=== PATIENT | female | born 1940 | race Caucasian/White ===

== ENCOUNTER → 2016-12-10 | Outpatient (CLI) | payer MEDICARE, BC ==
[2016-12-10 08:19] LABS: ALT 74 U/L (9-52); AST 68 U/L (14-36); Alkaline Phosphatase 58 U/L (38-126); Anion Gap 9 mmol/L; Blood Urea Nitrogen 13 mg/dL (7-17); Calcium 9.1 mg/dL (8.4-10.2); Carbon Dioxide 26 mmol/L (22-30); Chloride 109 mmol/L (98-107); Cholesterol 151 mg/dL (<200); Glucose 101 mg/dL (74-99); HDL Cholesterol 40 mg/dL (40-60); Non-African American GFR(MDRD) 58 (>60 ml/min/1.73 sqM); Potassium 4.4 mmol/L (3.5-5.1); Sodium 144 mmol/L (137-145); Total Bilirubin 0.4 mg/dL (0.2-1.3); Total Protein 6.9 g/dL (6.3-8.2); Triglycerides 168 mg/dL (<150)
== END | disposition home or self-care (01) ==
LOC: LABWHC1 07:44
PROVIDERS: ATTEND Internal Medicine Interventional Cardiology
DX: E78.2 Mixed hyperlipidemia (principal)
CPT/HCPCS: 36415; 80053; 80061

== ENCOUNTER 2017-01-27 04:12 | Observation (INO) | payer MEDICARE, BC ==
[2017-01-27] MEDS ORDERED: ONDANSETRON 4 MG/2 ML VIAL IVP STA (04:33)
[2017-01-27 04:44] LABS: Basophils % (A) 0 %; CH 30.1; CHCM 34.1; Eosinophils # (A) 0.3 k/uL (0-0.7); Eosinophils % (A) 5 %; HCT 39.7 % (34.0-46.0); HDW 2.71; HGB 13.7 gm/dL (11.4-16.0); Luc # (Auto) 0.12; Luc % (Auto) 2; Lymphocytes # (A) 1.2 k/uL (1.0-4.8); Lymphocytes % (A) 18 %; MCH 30.7 pg (25.0-35.0); MCHC 34.6 g/dL (31.0-37.0); MCV 88.9 fL (80.0-100.0); Mean Platelet Volume 6.5; Monocytes # (A) 0.5 k/uL (0-1.0); Monocytes % (A) 7 %; Neutrophils # (A) 4.8 k/uL (1.3-7.7); Neutrophils % (A) 68 %; RBC 4.47 m/uL (3.80-5.40); RDW 13.1 % (11.5-15.5); WBC 7.1 k/uL (3.8-10.6); WBC (Perox) 6.81
[2017-01-27 04:53] LABS: ALT 108 U/L (9-52); AST 78 U/L (14-36); Alkaline Phosphatase 72 U/L (38-126); Amylase 53 U/L (30-110); Anion Gap 11 mmol/L; Blood Urea Nitrogen 15 mg/dL (7-17); Calcium 9.5 mg/dL (8.4-10.2); Carbon Dioxide 24 mmol/L (22-30); Chloride 108 mmol/L (98-107); Glucose 127 mg/dL (74-99); Non-African American GFR(MDRD) >60 (>60 ml/min/1.73 sqM); Potassium 4.4 mmol/L (3.5-5.1); Sodium 143 mmol/L (137-145); Total Bilirubin 0.5 mg/dL (0.2-1.3); Total Protein 7.1 g/dL (6.3-8.2)
--- NOTE | 2017-01-27 05:11 | ED ---
General Adult HPI - General Chief complaint: Nausea/Vomiting/Diarrhea Stated complaint: nausea Time Seen by Provider: 01/27/17 04:28 Source: patient Mode of arrival: ambulatory Limitations: no limitations - History of Present Illness Initial comments: Patient is 77-year-old woman who presents because she is "not feeling well" which is been going on for number days. Patient is having a difficult time expressing what exactly she is experiencing. She has at times had some nausea though denies vomiting. She has at times had feeling like she was hot and cold. When we attempt to further define the symptoms, patient returns to the fact that she is not feeling well and also some things going on though she does have great difficulty in expressing exactly what she is feeling. -: days(s) Location: head, chest Quality: dull Consistency: intermittent Improves with: none Worsens with: none Associated Symptoms: chest pain, diaphoresis, nausea/vomiting - Related Data Home Medications Medication Instructions Recorded Confirmed Aspirin 81 mg PO MOTUWETHFR 03/28/14 01/27/17 Levothyroxine Sodium [Synthroid] 175 mcg PO DAILY 03/28/14 01/27/17 Pravastatin Sodium 20 mg PO MOTUWETHFR 03/28/14 01/27/17 Biotin 5 mg PO DAILY 01/27/17 01/27/17 Cholecalciferol [Vitamin D3] 1,000 unit PO DAILY 01/27/17 01/27/17 Fish Oil/Dha/Epa [Fish Oil 1,200 1 cap PO DAILY 01/27/17 01/27/17 mg Fish Oil] Glucosamine/Chondr Fernandez A Sod [Osteo 1 tab PO DAILY 01/27/17 01/27/17 Bi-Flex Caplet] Previous Rx's Medication Instructions Recorded Metoprolol Tartrate 25 mg PO BID #60 tab 01/28/17 Allergies Allergy/AdvReac Type Severity Reaction Status Date / Time gluten Allergy Unknown Verified 01/27/17 07:07 hydrocodone bitartrate AdvReac Rash/Hives Verified 01/27/17 07:06 [From Vicodin] Penicillins AdvReac Rash/Hives Verified 01/27/17 07:06 Review of Systems ROS Statement: Those systems with pertinent positive or pertinent negative responses have been documented in the HPI. ROS Other: All systems not noted in ROS Statement are negative. Constitutional: Denies: fever, chills, weakness Respiratory: Denies: cough, dyspnea, wheezes Cardiovascular: Reports: as per HPI, chest pain. Denies: palpitations, edema, syncope Gastrointestinal: Reports: nausea. Denies: diarrhea, constipation, melena, hematochezia Genitourinary: Denies: dysuria, hematuria Musculoskeletal: Denies: back pain Skin: Denies: rash Neurological: Reports: weakness. Denies: headache, numbness, paresthesias Past Medical History Past Medical History: Hyperlipidemia, Thyroid Disorder Additional Past Medical History / Comment(s): CAD History of Any Multi-Drug Resistant Organisms: None Reported Past Surgical History: Cholecystectomy, Hernia Repair Additional Past Surgical History / Comment(s): thyroid removal, hernia repair Past Psychological History: No Psychological Hx Reported Smoking Status: Former smoker Past Alcohol Use History: None Reported Past Drug Use History: None Reported General Exam Limitations: no limitations General appearance: alert, in no apparent distress Head exam: Present: atraumatic, normocephalic Eye exam: Present: normal appearance. Absent: scleral icterus, conjunctival injection Neck exam: Present: normal inspection Respiratory exam: Present: normal lung sounds bilaterally. Absent: respiratory distress, wheezes, rales, rhonchi, stridor Cardiovascular Exam: Present: regular rate, normal rhythm, normal heart sounds. Absent: systolic murmur, diastolic murmur, rubs, gallop GI/Abdominal exam: Present: soft. Absent: distended, tenderness, guarding, rebound, mass, pulsatile mass Extremities exam: Present: normal inspection, normal capillary refill. Absent: pedal edema, calf tenderness Back exam: Present: normal inspection. Absent: CVA tenderness (R), CVA tenderness (L) Neurological exam: Present: alert Skin exam: Present: warm, dry, intact, normal color. Absent: rash Course Vital Signs 01/27/17 01/27/17 01/27/17 04:14 04:34 04:55 Temperature 97.6 F Pulse Rate 76 75 74 Respiratory 20 18 18 Rate Blood Pressure 214/88 198/85 160/70 O2 Sat by Pulse 98 97 98 Oximetry 01/27/17 01/27/17 01/27/17 05:25 05:55 06:54 Temperature Pulse Rate 74 72 72 Respiratory 18 18 18 Rate Blood Pressure 158/71 139/66 167/74 O2 Sat by Pulse 97 96 97 Oximetry 01/27/17 08:58 Temperature 97.1 F L Pulse Rate 79 Respiratory 18 Rate Blood Pressure 140/70 O2 Sat by Pulse 98 Oximetry EKG Findings - EKG Results: EKG: interpreted by LOUIS JARAMILLO, sinus rhythm (Rate 77 bpm), normal axis, normal QRS, normal ST/T, no acute changes - OR, Pacemaker, Normal: Normal tracing: normal tracing Medical Decision Making - Lab Data Result diagrams: 01/27/17 04:30 01/27/17 04:30 Lab Results 01/27/17 01/27/17 01/27/17 Range/Units 04:30 04:30 04:30 WBC 7.1 (3.8-10.6) k/uL RBC 4.47 (3.80-5.40) m/uL Hgb 13.7 (11.4-16.0) gm/dL Hct 39.7 (34.0-46.0) % MCV 88.9 (80.0-100.0) fL MCH 30.7 (25.0-35.0) pg MCHC 34.6 (31.0-37.0) g/dL RDW 13.1 (11.5-15.5) % Plt Count 362 (150-450) k/uL Neutrophils % 68 % Lymphocytes % 18 % Monocytes % 7 % Eosinophils % 5 % Basophils % 0 % Neutrophils # 4.8 (1.3-7.7) k/uL Lymphocytes # 1.2 (1.0-4.8) k/uL Monocytes # 0.5 (0-1.0) k/uL Eosinophils # 0.3 (0-0.7) k/uL Basophils # 0.0 (0-0.2) k/uL Sodium 143 (137-145) mmol/L Potassium 4.4 (3.5-5.1) mmol/L Chloride 108 H (98-107) mmol/L Carbon Dioxide 24 (22-30) mmol/L Anion Gap 11 mmol/L BUN 15 (7-17) mg/dL Creatinine 0.85 (0.52-1.04) mg/dL Est GFR (MDRD) Af Amer >60 (>60 ml/min/1.73 sqM) Est GFR (MDRD) Non-Af >60 (>60 ml/min/1.73 sqM) Glucose 127 H (74-99) mg/dL Plasma Lactic Acid Bryce (0.7-2.0) mmol/L Calcium 9.5 (8.4-10.2) mg/dL Magnesium 2.0 (1.6-2.3) mg/dL Total Bilirubin 0.5 (0.2-1.3) mg/dL AST 78 H (14-36) U/L ALT 108 H (9-52) U/L Alkaline Phosphatase 72 (38-126) U/L Troponin I (0.000-0.034) ng/mL Total Protein 7.1 (6.3-8.2) g/dL Albumin 4.1 (3.5-5.0) g/dL Triglycerides (<150) mg/dL Cholesterol (<200) mg/dL LDL Cholesterol, Calc (0-99) mg/dL HDL Cholesterol (40-60) mg/dL Amylase 53 (30-110) U/L Lipase 64 (23-300) U/L Free T4 (0.78-2.19) ng/dL Free T3 pg/mL (2.8-5.3) pg/ml Urine Color Urine Appearance (Clear) Urine pH (5.0-8.0) Ur Specific Gonzales (1.001-1.035) Urine Protein (Negative) Urine Glucose (UA) (Negative) Urine Ketones (Negative) Urine Blood (Negative) Urine Nitrite (Negative) Urine Bilirubin (Negative) Urine Urobilinogen (<2.0) mg/dL Ur Leukocyte Esterase (Negative) Urine RBC (0-5) /hpf Urine WBC (0-5) /hpf Ur Squamous Epith Cells (0-4) /hpf Urine Mucus (None) /hpf 01/27/17 01/27/17 01/27/17 Range/Units 04:30 04:30 04:30 WBC (3.8-10.6) k/uL RBC (3.80-5.40) m/uL Hgb (11.4-16.0) gm/dL Hct (34.0-46.0) % MCV (80.0-100.0) fL MCH (25.0-35.0) pg MCHC (31.0-37.0) g/dL RDW (11.5-15.5) % Plt Count (150-450) k/uL Neutrophils % % Lymphocytes % % Monocytes % % Eosinophils % % Basophils % % Neutrophils # (1.3-7.7) k/uL Lymphocytes # (1.0-4.8) k/uL Monocytes # (0-1.0) k/uL Eosinophils # (0-0.7) k/uL Basophils # (0-0.2) k/uL Sodium (137-145) mmol/L Potassium (3.5-5.1) mmol/L Chloride (98-107) mmol/L Carbon Dioxide (22-30) mmol/L Anion Gap mmol/L BUN (7-17) mg/dL Creatinine (0.52-1.04) mg/dL Est GFR (MDRD) Af Amer (>60 ml/min/1.73 sqM) Est GFR (MDRD) Non-Af (>60 ml/min/1.73 sqM) Glucose (74-99) mg/dL Plasma Lactic Acid Bryce (0.7-2.0) mmol/L Calcium (8.4-10.2) mg/dL Magnesium (1.6-2.3) mg/dL Total Bilirubin (0.2-1.3) mg/dL AST (14-36) U/L ALT (9-52) U/L Alkaline Phosphatase (38-126) U/L Troponin I <0.012 (0.000-0.034) ng/mL Total Protein (6.3-8.2) g/dL Albumin (3.5-5.0) g/dL Triglycerides 202 H (<150) mg/dL Cholesterol 155 (<200) mg/dL LDL Cholesterol, Calc 74 (0-99) mg/dL HDL Cholesterol 41 (40-60) mg/dL Amylase (30-110) U/L Lipase (23-300) U/L Free T4 1.43 (0.78-2.19) ng/dL Free T3 pg/mL 3.6 (2.8-5.3) pg/ml Urine Color Urine Appearance (Clear) Urine pH (5.0-8.0) Ur Specific Gonzales (1.001-1.035) Urine Protein (Negative) Urine Glucose (UA) (Negative) Urine Ketones (Negative) Urine Blood (Negative) Urine Nitrite (Negative) Urine Bilirubin (Negative) Urine Urobilinogen (<2.0) mg/dL Ur Leukocyte Esterase (Negative) Urine RBC (0-5) /hpf Urine WBC (0-5) /hpf Ur Squamous Epith Cells (0-4) /hpf Urine Mucus (None) /hpf 01/27/17 01/27/17 Range/Units 04:45 05:25 WBC (3.8-10.6) k/uL RBC (3.80-5.40) m/uL Hgb (11.4-16.0) gm/dL Hct (34.0-46.0) % MCV (80.0-100.0) fL MCH (25.0-35.0) pg MCHC (31.0-37.0) g/dL RDW (11.5-15.5) % Plt Count (150-450) k/uL Neutrophils % % Lymphocytes % % Monocytes % % Eosinophils % % Basophils % % Neutrophils # (1.3-7.7) k/uL Lymphocytes # (1.0-4.8) k/uL Monocytes # (0-1.0) k/uL Eosinophils # (0-0.7) k/uL Basophils # (0-0.2) k/uL Sodium (137-145) mmol/L Potassium (3.5-5.1) mmol/L Chloride (98-107) mmol/L Carbon Dioxide (22-30) mmol/L Anion Gap mmol/L BUN (7-17) mg/dL Creatinine (0.52-1.04) mg/dL Est GFR (MDRD) Af Amer (>60 ml/min/1.73 sqM) Est GFR (MDRD) Non-Af (>60 ml/min/1.73 sqM) Glucose (74-99) mg/dL Plasma Lactic Acid Bryce 1.3 (0.7-2.0) mmol/L Calcium (8.4-10.2) mg/dL Magnesium (1.6-2.3) mg/dL Total Bilirubin (0.2-1.3) mg/dL AST (14-36) U/L ALT (9-52) U/L Alkaline Phosphatase (38-126) U/L Troponin I (0.000-0.034) ng/mL Total Protein (6.3-8.2) g/dL Albumin (3.5-5.0) g/dL Triglycerides (<150) mg/dL Cholesterol (<200) mg/dL LDL Cholesterol, Calc (0-99) mg/dL HDL Cholesterol (40-60) mg/dL Amylase (30-110) U/L Lipase (23-300) U/L Free T4 (0.78-2.19) ng/dL Free T3 pg/mL (2.8-5.3) pg/ml Urine Color Light Yellow Urine Appearance Clear (Clear) Urine pH 5.5 (5.0-8.0) Ur Specific Gonzales 1.008 (1.001-1.035) Urine Protein Negative (Negative) Urine Glucose (UA) Negative (Negative) Urine Ketones Negative (Negative) Urine Blood Negative (Negative) Urine Nitrite Negative (Negative) Urine Bilirubin Negative (Negative) Urine Urobilinogen <2.0 (<2.0) mg/dL Ur Leukocyte Esterase Small H (Negative) Urine RBC <1 (0-5) /hpf Urine WBC 7 H (0-5) /hpf Ur Squamous Epith Cells <1 (0-4) /hpf Urine Mucus Rare H (None) /hpf Disposition Clinical Impression: Unstable angina pectoris, Fatigue Disposition: ADMITTED IP TO THIS [facility] Condition: Stable
[2017-01-27 05:48] LABS: Appearance,Urine Clear (Clear); Bilirubin,Urine Negative (Negative); Glucose,Urine (UA) Negative (Negative); Ketones,Urine Negative (Negative); Leukocyte Esterase,Urine Small (Negative); Mucus,Urine Rare /hpf; Nitrite,Urine Negative (Negative); PH, Urine 5.5 (5.0-8.0); Particle Count 1102; Protein,Urine Negative (Negative); RBC,Urine <1 /hpf (0-5); Specific Gravity,Urine 1.008 (1.001-1.035); Squamous Epithelial Cell,Urine <1 /hpf (0-4); UA Billing (MACRO vs. MICRO) MICRO; Urobilinogen,Urine <2.0 mg/dL (<2.0); WBC,Urine 7 /hpf (0-5)
--- NOTE | 2017-01-27 06:39 | XR ---
EXAM: XR Chest, 1 View. CLINICAL HISTORY: Reason: Pain TECHNIQUE: Frontal view of the chest. COMPARISON: 03/28/14. FINDINGS: Lungs: No airspace consolidation or acute interstitial abnormality. Pleural spaces: Unremarkable. No pneumothorax. Heart: Unremarkable. No cardiomegaly. Mediastinum: Unremarkable. Bones: Unremarkable. No acute fracture. IMPRESSION: No evidence of active cardiopulmonary abnormality.
[2017-01-27] MEDS ORDERED: NITROGLYCERIN SL TABS 0.4 MG TAB SUBLINGUAL PRN (06:43)
[2017-01-27] MEDS: LEVOTHYROXINE 100 MCG TAB PO SCH (07:52)
[2017-01-27] MEDS: LEVOTHYROXINE 75 MCG TAB PO SCH (07:52)
[2017-01-27] MEDS ORDERED: ASPIRIN 81 MG CHEW PO SCH (09:00)
[2017-01-27] MEDS ORDERED: PRAVASTATIN SODIUM 20 MG TAB PO SCH ×2 (09:00→21:00)
--- NOTE | 2017-01-27 10:15 | P.CRDCN ---
History of Present Illness Consult date: 01/27/17 History of present illness: This is a 77-year-old female with history of hypothyroidism and hypercholesterolemia who came to the emergency room with complaints of not feeling well. Apparently she gets blood transfusions periodically. She had a transfusion on Thursday. Since then patient has been having episodes of flushing and not feeling well. Denies any chest pain. He did feel little short of breath with exertional activities. No complaints of palpitations. Her EKG did not reveal any acute changes. Cardiac enzyme studies are negative so far. Her blood pressure was high on admission but seems to be coming down into the range of 140/80. We'll continue to monitor her cardiac enzymes studies. I will also treat her with small dose of beta natalia. We'll plan for an echocardiogram tomorrow. If patient starts feeling well and cardiac enzymes are negative, patient could be discharged home tomorrow. Patient had previous cardiac catheterization which was apparently did not reveal any significant pathology in the past, though the study was more than 7 years Review of Systems As per the chart Past Medical History Past Medical History: Hyperlipidemia, Thyroid Disorder Additional Past Medical History / Comment(s): CAD History of Any Multi-Drug Resistant Organisms: None Reported Past Surgical History: Cholecystectomy, Hernia Repair Additional Past Surgical History / Comment(s): thyroid removal, hernia repair Past Psychological History: No Psychological Hx Reported Smoking Status: Former smoker Past Alcohol Use History: None Reported Past Drug Use History: None Reported Medications and Allergies Home Medications Medication Instructions Recorded Confirmed Type Aspirin 81 mg PO MOTUWETHFR 03/28/14 01/27/17 History Levothyroxine Sodium [Synthroid] 175 mcg PO DAILY 03/28/14 01/27/17 History Pravastatin Sodium 20 mg PO MOTUWETHFR 03/28/14 01/27/17 History Biotin 5 mg PO DAILY 01/27/17 01/27/17 History Cholecalciferol [Vitamin D3] 1,000 unit PO DAILY 01/27/17 01/27/17 History Fish Oil/Dha/Epa [Fish Oil 1,200 1 cap PO DAILY 01/27/17 01/27/17 History mg Fish Oil] Glucosamine/Chondr Fernandez A Sod [Osteo 1 tab PO DAILY 01/27/17 01/27/17 History Bi-Flex Caplet] Allergies Allergy/AdvReac Type Severity Reaction Status Date / Time gluten Allergy Unknown Verified 01/27/17 07:07 hydrocodone bitartrate AdvReac Rash/Hives Verified 01/27/17 07:06 [From Vicodin] Penicillins AdvReac Rash/Hives Verified 01/27/17 07:06 Physical Exam Vitals: Vital Signs Temp Pulse Pulse Resp BP BP Pulse Ox 01/27/17 09:10 75 18 01/27/17 09:00 97.4 F L 75 18 148/82 99 01/27/17 08:58 97.1 F L 79 18 140/70 98 01/27/17 06:54 72 18 167/74 97 01/27/17 05:55 72 18 139/66 96 01/27/17 05:25 74 18 158/71 97 01/27/17 04:55 74 18 160/70 98 01/27/17 04:34 75 18 198/85 97 01/27/17 04:14 97.6 F 76 20 214/88 98 Intake and Output 01/26/17 01/27/17 01/27/17 22:59 06:59 14:59 Other: Voiding Method Toilet Weight 74.843 kg 75.7 kg Patient Weight 01/28/17 06:59 Weight 75.7 kg GENERAL EXAM: Patient is alert and oriented and doesn't appear to be in any acute distress HEENT: Normocephalic. Normal reaction of pupils, equal size, normal range of extraocular motion. No erythema or exudates in the throat. NECK: No masses, no nuchal rigidity. CHEST: No chest wall deformity. LUNGS: Equal air entry with no crackles or wheeze. HEART: S1 and S2 normal with no audible mumurs or gallops. Regular rhythm, femorals equal on both sides.. ABDOMEN: No hepatosplenomegaly, normal bowel sounds, no guarding or rigidity. SKIN: No rashes CENTRAL NERVOUS SYSTEM: No focal deficits. EXTREMITIES: No cyanosis, clubbing or edema. Results 01/27/17 04:30 01/27/17 04:30 Cardiac Enzymes 01/27/17 01/27/17 Range/Units 04:30 04:30 AST 78 H (14-36) U/L Troponin I <0.012 (0.000-0.034) ng/mL CBC 01/27/17 Range/Units 04:30 WBC 7.1 (3.8-10.6) k/uL RBC 4.47 (3.80-5.40) m/uL Hgb 13.7 (11.4-16.0) gm/dL Hct 39.7 (34.0-46.0) % Plt Count 362 (150-450) k/uL Comprehensive Metabolic Panel 01/27/17 Range/Units 04:30 Sodium 143 (137-145) mmol/L Potassium 4.4 (3.5-5.1) mmol/L Chloride 108 H (98-107) mmol/L Carbon Dioxide 24 (22-30) mmol/L BUN 15 (7-17) mg/dL Creatinine 0.85 (0.52-1.04) mg/dL Glucose 127 H (74-99) mg/dL Calcium 9.5 (8.4-10.2) mg/dL AST 78 H (14-36) U/L ALT 108 H (9-52) U/L Alkaline Phosphatase 72 (38-126) U/L Total Protein 7.1 (6.3-8.2) g/dL Albumin 4.1 (3.5-5.0) g/dL Current Medications Generic Name Dose Route Start Last Admin Trade Name Freq PRN Reason Stop Dose Admin Aspirin 325 mg 01/28/17 09:00 Aspirin PO DAILY JULITO Levothyroxine Sodium 100 mcg 01/27/17 07:30 01/27/17 07:52 Synthroid PO 100 mcg 0630 JULITO Administration Levothyroxine Sodium 75 mcg 01/27/17 07:30 01/27/17 07:52 Synthroid PO 75 mcg 0630 JULITO Administration Nitroglycerin 0.4 mg 01/27/17 06:43 Nitrostat SUBLINGUAL Q5M PRN Chest Pain Pravastatin Sodium 20 mg 01/27/17 09:00 Pravachol PO DAILY JULITO Intake and Output 01/26/17 01/27/17 01/27/17 22:59 06:59 14:59 Other: Voiding Method Toilet Weight 74.843 kg 75.7 kg Patient Weight 01/28/17 06:59 Weight 75.7 kg 01/27/17 04:30 01/27/17 04:30 EKG Interpretations (text) Sinus rhythm Assessment and Plan (1) Flushing Status: Acute (2) Hyperlipemia Status: Chronic (3) Fatigue Status: Acute (4) Hypertension Status: Acute Plan: Continue to monitor her cardiac enzymes studies. Watch for any arrhythmias. Her symptoms could be a reaction to either infusion. If cardiac enzymes are negative, patient could be discharged home. She could also have an echo Card[place] tomorrow before discharge. However, if cardiac enzymes are positive, patient may need further intervention
[2017-01-27 10:54] LABS: Creatine Kinase 65 U/L (30-135)
[2017-01-27 11:08] LABS: Creatine Kinase MB 0.3 ng/mL (0.0-2.4); Troponin I <0.012 ng/mL (0.000-0.034)
[2017-01-27] MEDS: METOPROLOL TARTRATE 25 MG TAB PO SCH ×2 (11:10→22:18)
[2017-01-27 11:23] VITALS: BMI 30.5
[2017-01-27 17:03] LABS: Creatine Kinase 60 U/L (30-135)
[2017-01-27 17:17] LABS: Creatine Kinase MB 0.4 ng/mL (0.0-2.4); Troponin I <0.012 ng/mL (0.000-0.034)
[2017-01-28 02:52] LABS: Cholesterol 155 mg/dL (<200); HDL Cholesterol 41 mg/dL (40-60); Triglycerides 202 mg/dL (<150)
[2017-01-28] MEDS: LEVOTHYROXINE 75 MCG TAB PO SCH (05:57)
[2017-01-28] MEDS: LEVOTHYROXINE 100 MCG TAB PO SCH (05:57)
[2017-01-28] MEDS ORDERED: ASPIRIN 325 MG TAB PO SCH (09:00)
--- NOTE | 2017-01-28 09:58 | P.PN ---
Subjective This patient is admitted today with the symptoms of not feeling well. She feels that this is certainly feels flushed sweating feeling nauseated and some throat discomfort. Him to the emergency room her blood pressure was 212 beers are noted since admission in the hospital. Take enzymes are negative and had a similar spell this morning when her blood pressure went up to 160 goading to the patient her blood pressure usually remains in the range of 120 to 1:30 systolic and she is not taking any blood pressure medications that etiology of the spells is unclear to the stress echocardiographic study the stress study is normal patient can be discharged home and we will put her on 30 day event monitor as well as she will be advised to keep a record of her blood pressure during the spells and continues to have a labile blood pressure she may require some medications. Had a previous cardiac catheterization about 7 years ago which was normal. Objective - Vital Signs Vital signs: Vital Signs Temp 97.4 F L 01/28/17 08:00 Pulse 81 01/28/17 08:30 Resp 16 01/28/17 08:00 BP 161/80 01/28/17 08:30 Pulse Ox 98 01/28/17 08:00 Intake & Output 01/27/17 01/28/17 01/28/17 18:59 06:59 18:59 Intake Total 720 200 Balance 720 200 Weight 75.7 kg Intake: Oral 720 200 Other: Voiding Method Toilet Toilet Toilet # Voids 3 3 - Exam Vital signs are reviewed. Heart. First and second heart sounds are normal. Lungs are clinically clear to auscultation and percussion. Telemetric monitor does not show any arrhythmia. - Labs CBC & Chem 7: 01/27/17 04:30 01/27/17 04:30 Labs: Abnormal Lab Results - Last 24 Hours (Table) 01/27/17 Range/Units 04:30 Triglycerides 202 H (<150) mg/dL Assessment and Plan Plan: Patient would be evaluated with a stress echocardiographic study. It told that is normal patient can be discharged home. We will give her 30 day event monitor.
--- NOTE | 2017-01-28 11:54 | P.STRESS ---
- Stress Test Note Stress Test Results/Findings: Exam Performed: stress echo exercise Exam Date: 01/28/17 Height: 5 ft 2 in Weight: 75.7 kg Protocol: Marvin Stage: 11 Duration of Exercise: 6.00 Resting Heart Rate: 88 Resting Blood Pressure: 114/58 Maximum Achieved Heart Rate: 136 Maximum Achieved Blood Pressure: 152/58 85% PMHR: 123 100% PMHR: 145 METS: 5.8 Technologist Comment: Stress Test Results/Findings: Baseline EKG shows sinus rhythm normal axis normal intervals with nonspecific ST -T wave changes patient exercised on Marvin protocol for a total of 6 minutes achieving 7 METs 85% of predicted maximum heart rate without chest pain or diagnostic ST segment depression Baseline echo shows normal left ventricular size wall motion systolic function with an ejection fraction of 60% postexercise there is normal hyperdynamic response of all segments of myocardium noted Conclusions: Average exercise tolerance Nondiagnostic EKG changes with exercise Negative stress echo
[2017-01-28 12:01] VITALS: RESP 19
[2017-01-28] MEDS: METOPROLOL TARTRATE 25 MG TAB PO SCH ×2 (12:15→18:35)
[2017-01-28 15:29] VITALS: TEMP 97.7
--- NOTE | 2017-01-28 18:09 | P.DS ---
Providers Date of admission: 01/27/17 06:43 Expected date of discharge: 01/28/17 Attending physician: Royce Torre Consults: 01/27/17 06:43 Consult Physician Routine Consulting Provider: Janeth Rivera Consult Reason/Comments: chest discomfort Do you want consulting provider notified?: Yes Primary care physician: Royce Torre - Discharge Diagnosis(es) (1) Flushing Related to intermittent essential hypertension Current Visit: Yes Status: Acute (2) Hypertension Patient was started on metoprolol tartrate 25 mg 1 by mouth twice daily Current Visit: Yes Status: Acute Hospital Course: General: [Patient awake, alert and oriented times 3. Patient in no acute distress.] HEENT: [PERRL. EOMI. No pharyngeal erythema or exudate.] Neck: [No adenopathy.] Cardiac: [Heart regular in rate and rhythm. No S3. No S4. No clicks, rubs. No murmur.] Lungs: [Clear to auscultation bilaterally.] Abdomen: [No mass. No organomegaly. Bowel sounds presnt and normoactive in all 4 quadrants.] Extremes: [No edema no cyanosis no claudication normal pulses] : [] Musculoskeletal: [No joint erythema, edema or tenderness.] Skin: [No rash.] Neurologic: [No lateralizing deficits. CN II - XII grossly intact.] Lymphatic: [No adenopathy.] Procedures: Stress echo, which was unremarkable Patient Condition at Discharge: Stable Plan - Discharge Summary New Discharge Prescriptions: New Metoprolol Tartrate 25 mg PO BID #60 tab No Action Pravastatin Sodium 20 mg PO MOTUWETHFR Levothyroxine Sodium [Synthroid] 175 mcg PO DAILY Aspirin 81 mg PO MOTUWETHFR Glucosamine/Chondr Fernandez A Sod [Osteo Bi-Flex Caplet] 1 tab PO DAILY Fish Oil/Dha/Epa [Fish Oil 1,200 mg Fish Oil] 1 cap PO DAILY Cholecalciferol [Vitamin D3] 1,000 unit PO DAILY Biotin 5 mg PO DAILY Discharge Medication List Aspirin 81 mg PO MOTUWETHFR 03/28/14 [History] Levothyroxine Sodium [Synthroid] 175 mcg PO DAILY 03/28/14 [History] Pravastatin Sodium 20 mg PO MOTUWETHFR 03/28/14 [History] Biotin 5 mg PO DAILY 01/27/17 [History] Cholecalciferol [Vitamin D3] 1,000 unit PO DAILY 01/27/17 [History] Fish Oil/Dha/Epa [Fish Oil 1,200 mg Fish Oil] 1 cap PO DAILY 01/27/17 [History] Glucosamine/Chondr Fernandez A Sod [Osteo Bi-Flex Caplet] 1 tab PO DAILY 01/27/17 [ History] Metoprolol Tartrate 25 mg PO BID #60 tab 01/28/17 [Rx] Follow up Appointment(s)/Referral(s): Janeth Rivera MD [STAFF PHYSICIAN] - 1 Week (Office will call with appointment. ) Royce Torre Jr, [Primary Care Provider] - 1-2 days Activity/Diet/Wound Care/Special Instructions: follow up with Dr. Rivera for possible heart monitor.
[2017-01-28 18:35] VITALS: BP 140/76; PULSE 86
--- NOTE | 2017-01-29 12:56 | ECHOF ---
Referral Reason:Chest pain and cardiomyopathy MEASUREMENTS -------- HEIGHT: 157.5 cm WEIGHT: 75.3 kg BP: 129/72 RVIDd: 2.4 cm (< 3.3) IVSd: 1.0 cm (0.6 - 1.1) LVIDd: 3.7 cm (3.9 - 5.3) LVPWd: 1.2 cm (0.6 - 1.1) IVSs: 1.3 cm LVIDs: 2.9 cm LVPWs: 1.1 cm LA Diam: 2.9 cm (2.7 - 3.8) LAESV Index (A-L): 24.29 ml/m Ao Diam: 2.8 cm (2.0 - 3.7) AV Cusp: 2.1 cm (1.5 - 2.6) LA Diam: 3.4 cm (2.7 - 3.8) MV EXCURSION: 15.618 mm (> 18.000) MV EF SLOPE: 45 mm/s (70 - 150) EPSS: 0.7 cm MV E Pierre: 0.50 m/s MV DecT: 250 ms MV A Pierre: 0.79 m/s MV E/A Ratio: 0.63 RAP: 5.00 mmHg RVSP: 13.52 mmHg FINDINGS -------- Sinus rhythm. This was a technically adequate study. LV size, wall thickness and systolic function are normal, with an EF greater than 55%. The right ventricle is normal in size. Normal LA size by volume 22+/-6 ml/m2. The right atrial size is normal. The aortic valve is trileaflet, and appears structurally normal. No aortic stenosis or regurgitation. Mild mitral annular calcification present. Mild mitral regurgitation is present. Mild tricuspid regurgitation present. There is no evidence of pulmonary hypertension. The right ventricular systolic pressure, as measured by Doppler, is 13.52mmHg. There is no pulmonic regurgitation present. The aortic root size is normal. There is no pericardial effusion. CONCLUSIONS -------- 1. Sinus rhythm. 2. The aortic root size is normal. 3. There is no pericardial effusion. 4. LV size, wall thickness and systolic function are normal, with an EF greater than 55%. 5. The aortic valve is trileaflet, and appears structurally normal. No aortic stenosis or regurgitation. 6. Mild mitral annular calcification present. 7. Mild mitral regurgitation is present. 8. Mild tricuspid regurgitation present. 9. There is no evidence of pulmonary hypertension. 10. The right ventricular systolic pressure, as measured by Doppler, is 13.52mmHg. 11. There is no pulmonic regurgitation present. RESEARCH SPECIALIST: Krupa Humphrey RDCS
== END 2017-01-28 18:41 | disposition home or self-care (01) ==
LOC: EC 04:12 → 3OBS 06:43
PROVIDERS: ADMIT Family Medicine; ATTEND Family Medicine
DX: R23.2 Flushing (principal); I10 Essential (primary) hypertension; R11.0 Nausea; R53.83 Other fatigue; E78.5 Hyperlipidemia, unspecified; E03.9 Hypothyroidism, unspecified; E78.00 Pure hypercholesterolemia, unspecified; I25.10 Atherosclerotic heart disease of native coronary artery without angina pectoris; Z79.82 Long term (current) use of aspirin; Z79.899 Other long term (current) drug therapy; Z88.5 Allergy status to narcotic agent; Z88.0 Allergy status to penicillin; Z91.018 Allergy to other foods; Z87.891 Personal history of nicotine dependence
CPT/HCPCS: 36415; 93005; 93017; 93306; 93350; 84439; 84481; 80061; 80053; 82150; 82550; 82553; 83605; 83690; 83735; 84484; 85025; 81001; 71010; 99285; G0378 ×2

== ENCOUNTER → 2017-12-18 | Outpatient (CLI) | payer MEDICARE, BC ==
[2017-12-18 10:41] LABS: Albumin 3.8 g/dL (3.5-5.0); Calcium 9.6 mg/dL (8.4-10.2); Potassium 4.9 mmol/L (3.5-5.1); Total Bilirubin 0.3 mg/dL (0.2-1.3); Total Protein 6.6 g/dL (6.3-8.2)
== END | disposition home or self-care (01) ==
LOC: LABWHC1 09:56
PROVIDERS: ATTEND Internal Medicine Interventional Cardiology
DX: E78.2 Mixed hyperlipidemia (principal)
CPT/HCPCS: 36415; 80053; 80061

== ENCOUNTER → 2018-03-12 | Outpatient (CLI) | payer MEDICARE, BC ==
--- NOTE | 2018-03-16 13:39 | MM ---
Reason for exam: screening (asymptomatic). Last mammogram was performed 1 year and 9 months ago. History: Patient is postmenopausal. Family history of breast cancer in maternal cousin at age 50. Benign excisional biopsy of the right breast, 1977. Took estrogen for 5 years. Taking other hormone for 3 years. Physical Findings: A clinical breast exam by your physician is recommended on an annual basis and results should be correlated with mammographic findings. MG 3D Screening Mammo W/Cad Bilateral CC and MLO view(s) were taken. Prior study comparison: June 04, 2016, bilateral MG 3d screening mammo w/cad. May 25, 2015, bilateral MG screening mammo w CAD. There are scattered fibroglandular densities. Finding #1: There is a 5 mm circumscribed round mass in the lower inner quadrant, anterior position of the left breast. Finding #2: There are typically benign vascular, round calcifications in both breasts. Questionable new 4mm lesion centrally. New finding since June 04, 2016. ASSESSMENT: Incomplete: need additional imaging evaluation, BI-RAD 0 RECOMMENDATION: Special view mammogram and ultrasound of the left breast. [facility] will attempt to contact patient to return for supplemental views and ultrasound.
== END | disposition home or self-care (01) ==
LOC: RADMAMWWP 09:55
PROVIDERS: ATTEND Family Medicine
DX: Z12.31 Encounter for screening mammogram for malignant neoplasm of breast (principal)
CPT/HCPCS: 77063; 77067

== ENCOUNTER → 2018-04-02 | Outpatient (CLI) | payer MEDICARE, BC ==
--- NOTE | 2018-04-02 11:34 | MM ---
Reason for exam: additional evaluation requested from abnormal screening. Last mammogram was performed 1 month ago. History: Patient is postmenopausal. Family history of breast cancer in maternal cousin at age 50. Benign excisional biopsy of the right breast, 1977. Took estrogen for 5 years. Taking other hormone for 3 years. Physical Findings: Nurse did not find any significant physical abnormalities on exam. MG 3D Work Up W/Cad LT LM view(s) were taken of the left breast. Prior study comparison: March 12, 2018, bilateral MG 3d screening mammo w/cad. June 04, 2016, bilateral MG 3d screening mammo w/cad. Lesion not as well seen on lateral. These results were verbally communicated with the patient and result sheet given to the patient on 04/02/18. ASSESSMENT: Probably benign, BI-RAD 3 RECOMMENDATION: Follow-up diagnostic mammogram of the left breast in 6 months.
--- NOTE | 2018-04-02 11:35 | USB ---
Reason for exam: additional evaluation requested from abnormal screening. History: Patient is postmenopausal. Family history of breast cancer in maternal cousin at age 50. Benign excisional biopsy of the right breast, 1977. Took estrogen for 5 years. Taking other hormone for 3 years. US Breast Workup Limited LT Left limited breast ultrasound including focal area of concern, retroareolar and axilla demonstrates a 0.2 x 0.2 x 0.2cm oval, cystic lesion at 8 o'clock. These results were verbally communicated with the patient and result sheet given to the patient on 04/02/18. ASSESSMENT: Probably benign, BI-RAD 3 RECOMMENDATION: Follow-up diagnostic mammogram of the left breast in 6 months.
== END | disposition home or self-care (01) ==
LOC: RADMAMWWP 08:59
PROVIDERS: ATTEND Family Medicine
DX: R92.8 Other abnormal and inconclusive findings on diagnostic imaging of breast (principal)
CPT/HCPCS: 77065; 76642; G0279; 77061

== ENCOUNTER → 2018-04-28 | Outpatient (CLI) | payer MEDICARE, BC ==
[2018-04-28 09:55] LABS: ALT 69 U/L (9-52); AST 52 U/L (14-36); Cholesterol 199 mg/dL (<200); HDL Cholesterol 43 mg/dL (40-60); LDL Cholesterol,Calculated 126 mg/dL (0-99); Triglycerides 152 mg/dL (<150)
== END | disposition home or self-care (01) ==
LOC: LABWHC1 08:56
PROVIDERS: ATTEND Internal Medicine Interventional Cardiology
DX: E78.2 Mixed hyperlipidemia (principal)
CPT/HCPCS: 36415; 80061; 84450; 84460

== ENCOUNTER 2018-08-18 09:56 | Emergency (ER) | payer MEDICARE, BC ==
[2018-08-18 10:03] VITALS: TEMP 97.8
[2018-08-18] MEDS ORDERED: SODIUM CHLORIDE 0.9% 1,000 ML IV STA (10:36)
[2018-08-18] MEDS ORDERED: SODIUM CHLORIDE 0.9% 500 ML 500 ML IV STA ×2 (10:36→12:19)
--- NOTE | 2018-08-18 10:43 | ED ---
General Adult HPI - General Chief complaint: Syncope Stated complaint: syncope Time Seen by Provider: 08/18/18 10:28 Source: patient, family, RN notes reviewed Mode of arrival: wheelchair Limitations: no limitations - History of Present Illness Initial comments: Patient is a pleasant 78-year-old female presenting to the emergency department following a syncopal episode. Episode occurred this morning prior to getting her iron infusion. Patient states she was making something to eat when she suddenly became unresponsive. Patient denies any injury. Patient states she feels slightly fatigued at this time. Patient states this is normally how she feels when her iron is low though. Patient does have history of chronic problems with low iron. Patient denies any recent bleeding. No black tarry stools. Patient denies any chest pain or dyspnea. Patient then later states that she has had an ache for the last couple of days and her left posterior thoracic region and may be somewhat on the side as well. Patient did take a flight from [place] 11 days ago. Patient also had dental work done around 4 days ago. Patient also denies significant bleeding with dental work. No headache or confusion or weakness. - Related Data Home Medications Medication Instructions Recorded Confirmed Pravastatin Sodium 20 mg PO MOTUWETHFR 03/28/14 08/18/18 Biotin 5 mg PO DAILY 01/27/17 08/18/18 Cholecalciferol [Vitamin D3] 1,000 unit PO DAILY 01/27/17 08/18/18 Fish Oil/Dha/Epa [Fish Oil 1,200 1 cap PO DAILY 01/27/17 08/18/18 mg Fish Oil] Glucosamine/Chondr Fernandez A Sod [Osteo 1 tab PO DAILY 01/27/17 08/18/18 Bi-Flex Caplet] Clindamycin HCl [Cleocin] 300 mg PO Q8H 08/18/18 08/18/18 Cyanocobalamin [Vitamin B-12] 500 mcg PO DAILY 08/18/18 08/18/18 Levothyroxine Sodium [Synthroid] 150 mcg PO DAILY 08/18/18 08/18/18 Previous Rx's Medication Instructions Recorded Metoprolol Tartrate 25 mg PO BID #60 tab 01/28/17 Allergies Allergy/AdvReac Type Severity Reaction Status Date / Time gluten Allergy Unknown Verified 08/18/18 10:26 hydrocodone bitartrate AdvReac Rash/Hives Verified 08/18/18 10:26 [From Vicodin] Penicillins AdvReac Rash/Hives Verified 08/18/18 10:26 Review of Systems ROS Statement: Those systems with pertinent positive or pertinent negative responses have been documented in the HPI. ROS Other: All systems not noted in ROS Statement are negative. Constitutional: Denies: fever Eyes: Denies: eye pain ENT: Denies: ear pain Respiratory: Denies: cough, dyspnea Cardiovascular: Reports: as per HPI. Denies: chest pain Endocrine: Reports: fatigue Gastrointestinal: Denies: abdominal pain, hematemesis, melena, hematochezia Genitourinary: Denies: dysuria Musculoskeletal: Reports: as per HPI, back pain (Left mid to upper thoracic region) Skin: Denies: rash Neurological: Denies: headache, weakness, confusion Past Medical History Past Medical History: Hyperlipidemia, Thyroid Disorder Additional Past Medical History / Comment(s): CAD, anemia History of Any Multi-Drug Resistant Organisms: None Reported Past Surgical History: Cholecystectomy, Hernia Repair Additional Past Surgical History / Comment(s): thyroid removal, hernia repair Past Anesthesia/Blood Transfusion Reactions: No Reported Reaction Past Psychological History: No Psychological Hx Reported Smoking Status: Former smoker Past Alcohol Use History: None Reported Past Drug Use History: None Reported General Exam Limitations: no limitations General appearance: alert, in no apparent distress Head exam: Present: atraumatic, normocephalic Eye exam: Present: normal appearance, PERRL, EOMI. Absent: nystagmus ENT exam: Present: normal oropharynx Neck exam: Present: normal inspection. Absent: tenderness, meningismus Respiratory exam: Present: normal lung sounds bilaterally. Absent: chest wall tenderness Cardiovascular Exam: Present: regular rate, normal rhythm Expanded Peripheral pulses: 2+: Radial (R), Radial (L), Posterior Tibialis (R), Posterior Tibialis (L), Dorsalis Pedis (R), Dorsalis Pedis (L) GI/Abdominal exam: Present: soft. Absent: distended, tenderness, pulsatile mass Extremities exam: Present: normal inspection. Absent: pedal edema, calf tenderness Back exam: Present: normal inspection. Absent: tenderness Neurological exam: Present: alert, oriented X3, CN II-XII intact. Absent: motor sensory deficit Expanded Neurological exam: Present: protecting the airway Patient oriented to: Present: person, place, time Speech: Present: fluid speech Cranial nerves: EOM's Intact: Normal Motor strength exam: RUE: 5, LUE: 5, RLE: 5, LLE: 5 Eye Response: (4) open spontaneously Motor Response: (6) obeys commands Verbal Response: (5) oriented Psychiatric exam: Present: normal affect, normal mood Skin exam: Present: normal color Course Vital Signs 08/18/18 08/18/18 08/18/18 10:00 12:25 13:00 Temperature 97.8 F Pulse Rate 70 64 71 Respiratory 18 16 16 Rate Blood Pressure 102/55 109/62 126/57 O2 Sat by Pulse 99 98 97 Oximetry EKG Findings - EKG Comments: EKG Findings:: Normal sinus rhythm 67. LA 178. QRS 74. QT 410. QTc 433. Left axis. LVH criteria. No acute ST change. Medical Decision Making - Medical Decision Making Patient reevaluated. Patient and family updated on results. Case discussed in detail with Dr. Garg who is familiar with this patient and does recommend she go for her iron transfusion at this time. He will follow up with patient tomorrow. Patient and family updated on plan. - Lab Data Result diagrams: 08/18/18 10:54 08/18/18 10:54 Lab Results 08/18/18 08/18/18 08/18/18 Range/Units 10:54 10:54 10:54 WBC 12.3 H (3.8-10.6) k/uL RBC 4.47 (3.80-5.40) m/uL Hgb 13.1 (11.4-16.0) gm/dL Hct 39.4 (34.0-46.0) % MCV 88.3 (80.0-100.0) fL MCH 29.4 (25.0-35.0) pg MCHC 33.3 (31.0-37.0) g/dL RDW 14.2 (11.5-15.5) % Plt Count 363 (150-450) k/uL Neutrophils % 85 % Lymphocytes % 8 % Monocytes % 5 % Eosinophils % 2 % Basophils % 0 % Neutrophils # 10.5 H (1.3-7.7) k/uL Lymphocytes # 1.0 (1.0-4.8) k/uL Monocytes # 0.6 (0-1.0) k/uL Eosinophils # 0.2 (0-0.7) k/uL Basophils # 0.0 (0-0.2) k/uL PT (9.0-12.0) sec INR (<1.2) APTT (22.0-30.0) sec Sodium 139 (137-145) mmol/L Potassium 5.5 H (3.5-5.1) mmol/L Chloride 106 (98-107) mmol/L Carbon Dioxide 26 (22-30) mmol/L Anion Gap 7 mmol/L BUN 23 H (7-17) mg/dL Creatinine 1.20 H (0.52-1.04) mg/dL Est GFR (CKD-EPI)AfAm 51 (>60 ml/min/1.73 sqM) Est GFR (CKD-EPI)NonAf 44 (>60 ml/min/1.73 sqM) Glucose 131 H (74-99) mg/dL Calcium 9.4 (8.4-10.2) mg/dL Magnesium 2.1 (1.6-2.3) mg/dL Total Bilirubin 0.4 (0.2-1.3) mg/dL AST 28 (14-36) U/L ALT 54 H (9-52) U/L Alkaline Phosphatase 56 (38-126) U/L Total Creatine Kinase 47 (30-135) U/L CK-MB (CK-2) <0.2 (0.0-2.4) ng/mL CK-MB (CK-2) Rel Index Troponin I <0.012 (0.000-0.034) ng/mL Total Protein 6.0 L (6.3-8.2) g/dL Albumin 3.4 L (3.5-5.0) g/dL 08/18/18 Range/Units 10:54 WBC (3.8-10.6) k/uL RBC (3.80-5.40) m/uL Hgb (11.4-16.0) gm/dL Hct (34.0-46.0) % MCV (80.0-100.0) fL MCH (25.0-35.0) pg MCHC (31.0-37.0) g/dL RDW (11.5-15.5) % Plt Count (150-450) k/uL Neutrophils % % Lymphocytes % % Monocytes % % Eosinophils % % Basophils % % Neutrophils # (1.3-7.7) k/uL Lymphocytes # (1.0-4.8) k/uL Monocytes # (0-1.0) k/uL Eosinophils # (0-0.7) k/uL Basophils # (0-0.2) k/uL PT 9.7 (9.0-12.0) sec INR 0.9 (<1.2) APTT 20.8 L (22.0-30.0) sec Sodium (137-145) mmol/L Potassium (3.5-5.1) mmol/L Chloride (98-107) mmol/L Carbon Dioxide (22-30) mmol/L Anion Gap mmol/L BUN (7-17) mg/dL Creatinine (0.52-1.04) mg/dL Est GFR (CKD-EPI)AfAm (>60 ml/min/1.73 sqM) Est GFR (CKD-EPI)NonAf (>60 ml/min/1.73 sqM) Glucose (74-99) mg/dL Calcium (8.4-10.2) mg/dL Magnesium (1.6-2.3) mg/dL Total Bilirubin (0.2-1.3) mg/dL AST (14-36) U/L ALT (9-52) U/L Alkaline Phosphatase (38-126) U/L Total Creatine Kinase (30-135) U/L CK-MB (CK-2) (0.0-2.4) ng/mL CK-MB (CK-2) Rel Index Troponin I (0.000-0.034) ng/mL Total Protein (6.3-8.2) g/dL Albumin (3.5-5.0) g/dL - Radiology Data Radiology results: report reviewed (Computed tomography scan the chest shows no pulmonary embolism. No acute abnormality) Disposition Clinical Impression: Syncope Disposition: HOME SELF-CARE Condition: Stable Instructions (If sedation given, give patient instructions): Syncope (ED) Additional Instructions: Please follow-up with primary care physician tomorrow. Dr. Garg states he will see at that time. Please have your iron transfusion done today. Return for passing out, confusion or weakness, chest pain or shortness of breath, worsening symptoms or any other concerns. Is patient prescribed a controlled substance at d/c from ED?: No Referrals: Royce Torre Jr, DO [Primary Care Provider] - 1-2 days Time of Disposition: 14:44
[2018-08-18 11:22] LABS: HCT 39.4 % (34.0-46.0); HGB 13.1 gm/dL (11.4-16.0); MCH 29.4 pg (25.0-35.0); MCHC 33.3 g/dL (31.0-37.0); MCV 88.3 fL (80.0-100.0); Mean Platelet Volume 6.3; Platelet Count 363 k/uL (150-450); RBC 4.47 m/uL (3.80-5.40); RDW 14.2 % (11.5-15.5); WBC 12.3 k/uL (3.8-10.6)
[2018-08-18 11:23] LABS: Basophils % (A) 0 %; Eosinophils # (A) 0.2 k/uL (0-0.7); Eosinophils % (A) 2 %; Lymphocytes % (A) 8 %; Monocytes # (A) 0.6 k/uL (0-1.0); Monocytes % (A) 5 %; Neutrophils # (A) 10.5 k/uL (1.3-7.7); Neutrophils % (A) 85 %
[2018-08-18 11:48] LABS: Albumin 3.4 g/dL (3.5-5.0); Calcium 9.4 mg/dL (8.4-10.2); Magnesium 2.1 mg/dL (1.6-2.3); Potassium 5.5 mmol/L (3.5-5.1); Total Bilirubin 0.4 mg/dL (0.2-1.3)
[2018-08-18 11:52] LABS: Creatine Kinase 47 U/L (30-135)
[2018-08-18 12:06] LABS: Creatine Kinase MB <0.2 ng/mL (0.0-2.4); INR 0.9 (<1.2); Prothrombin Time 9.7 sec (9.0-12.0); Troponin I <0.012 ng/mL (0.000-0.034)
[2018-08-18 12:13] LABS: Partial Thromboplastin Time 20.8 sec (22.0-30.0)
[2018-08-18 12:26] VITALS: RESP 16
--- NOTE | 2018-08-18 14:21 | CT ---
EXAMINATION TYPE: CT angio chest DATE OF EXAM: 08/18/2018 COMPARISON: 03/28/2014 HISTORY: 78-year-old female with syncope TECHNIQUE: Contiguous axial scanning of the chest performed with IV Contrast, patient injected with 1 00 ml mL of Isovue 370. Coronal/sagittal MIP reconstructions performed. CT DLP: 257.8 mGycm Automated exposure control for dose reduction was used. FINDINGS: Heart normal size without pericardial effusion. Prominent epicardial fat is unchanged from 2014. Elijah nary vessel calcifications are present. Aorta is normal caliber with mild atherosclerotic arch calcifications and conventional arch vessel br anching anatomy. Satisfactory opacification of the pulmonary arterial system without evidence for pulmonary embolus. No thoracic lymphadenopathy based the size criteria. Evaluation of the lung shows no consolidation or pleural effusion. Mild dependent atelectasis at the lung bases. Visualized upper abdomen shows cholecystectomy clips. Bones: No osseous destructive process. IMPRESSION: NO EVIDENCE FOR PULMONARY EMBOLUS. NO ACUTE PULMONARY PROCESS.
[2018-08-18 14:56] LABS: Appearance,Urine Clear (Clear); Bilirubin,Urine Negative (Negative); Blood,Urine Negative (Negative); Color,Urine Light Yellow; Glucose,Urine (UA) Negative (Negative); Ketones,Urine Negative (Negative); Leukocyte Esterase,Urine Small (Negative); Mucus,Urine Rare /hpf; Nitrite,Urine Negative (Negative); Protein,Urine Negative (Negative); RBC,Urine <1 /hpf (0-5); Specific Gravity,Urine 1.009 (1.001-1.035); Squamous Epithelial Cell,Urine <1 /hpf (0-4); Urobilinogen,Urine <2.0 mg/dL (<2.0); WBC,Urine 3 /hpf (0-5)
[2018-08-18 15:00] VITALS: BP 113/68; PULSE 75
== END 2018-08-18 15:11 | disposition home or self-care (01) ==
LOC: EC 09:56
DX: R55 Syncope and collapse (principal); R53.83 Other fatigue; E78.5 Hyperlipidemia, unspecified; E07.9 Disorder of thyroid, unspecified; D64.9 Anemia, unspecified; Z87.891 Personal history of nicotine dependence; Z79.890 Hormone replacement therapy; Z79.899 Other long term (current) drug therapy; Z88.0 Allergy status to penicillin; Z88.5 Allergy status to narcotic agent; Z91.018 Allergy to other foods
CPT/HCPCS: 36415; 93005; 80053; 82550; 82553; 83735; 84484; 85025; 85610; 85730; 81001; 71275; 99284; 96360; 96361 ×3; Q9967

== ENCOUNTER → 2018-12-10 | Outpatient (CLI) | payer MEDICARE, BC ==
--- NOTE | 2018-12-10 10:05 | MM ---
Reason for exam: follow-up at short interval from prior study. Last mammogram was performed 8 months ago. History: Patient is postmenopausal. Family history of breast cancer in maternal cousin at age 50. Benign excisional biopsy of the right breast, 1977. Took estrogen for 5 years. Taking other hormone for 3 years. Physical Findings: Nurse did not find any significant physical abnormalities on exam. MG 3D Diag Mammo W/Cad LT CC and MLO view(s) were taken of the left breast. Prior study comparison: April 02, 2018, left breast MG 3d work up w/cad LT. March 12, 2018, bilateral MG 3d screening mammo w/cad. The breast tissue is almost entirely fat. No significant new findings when compared with previous films. These results were verbally communicated with the patient and result sheet given to the patient on 12/10/18. ASSESSMENT: Benign, BI-RAD 2 RECOMMENDATION: Return to routine screening mammogram schedule for both breasts. Back on schedule for February 2019.
== END | disposition home or self-care (01) ==
LOC: RADMAMWWP 09:25
PROVIDERS: ATTEND Family Medicine
DX: R92.8 Other abnormal and inconclusive findings on diagnostic imaging of breast (principal)
CPT/HCPCS: 77065; G0279; 77061

== ENCOUNTER → 2018-12-22 | Outpatient (CLI) | payer MEDICARE, BC ==
[2018-12-22 16:38] LABS: Anion Gap 6.9 mmol/L (4.00-12.00); Calcium 9.3 mg/dL (8.7-10.3); Carbon Dioxide 27.1 mmol/L (21.6-31.8); LDL Cholesterol,Calculated 65.4 mg/dL (0.0-131.0); Potassium 4.9 mmol/L (3.5-5.5); Total Bilirubin 0.3 mg/dL (0.2-1.2); VLDL Calculation 25.6 mg/dL (5.00-40.00)
== END | disposition home or self-care (01) ==
LOC: LABWHC1 08:47
PROVIDERS: ATTEND Internal Medicine Interventional Cardiology
DX: E78.2 Mixed hyperlipidemia (principal)
CPT/HCPCS: 36415; 80053; 80061

== ENCOUNTER → 2019-05-10 | Outpatient (CLI) | payer MEDICARE, BC ==
[2019-05-10 15:50] LABS: Chol/HDL Ratio 3.71; LDL Cholesterol,Calculated 83.6 mg/dL (0.0-131.0); VLDL Calculation 27.4 mg/dL (5.00-40.00)
== END | disposition home or self-care (01) ==
LOC: LABWHC1 09:33
PROVIDERS: ATTEND Internal Medicine Interventional Cardiology
DX: E78.2 Mixed hyperlipidemia (principal)
CPT/HCPCS: 36415; 80061; 84450; 84460

== ENCOUNTER → 2020-05-17 | Outpatient (CLI) | payer MEDICARE, BC ==
[2020-05-17 14:49] LABS: African American GFR (CKD) 81.8 (60.0-200.0); Anion Gap 4.7 mmol/L (4.00-12.00); BUN/Creat Ratio 21.25 Ratio (12.00-20.00); Calcium 8.9 mg/dL (8.7-10.3); Carbon Dioxide 27.3 mmol/L (21.6-31.8); Chol/HDL Ratio 3.36; LDL Cholesterol,Calculated 70.6 mg/dL (0.0-131.0); Non-African American GFR(CKD) 70.6 (60.0-200.0); Potassium 4.6 mmol/L (3.5-5.5); Total Bilirubin 0.3 mg/dL (0.3-1.2); VLDL Calculation 21.4 mg/dL (5.00-40.00)
== END | disposition home or self-care (01) ==
LOC: LABWHC1 09:13
PROVIDERS: ATTEND Internal Medicine Interventional Cardiology
DX: E78.2 Mixed hyperlipidemia (principal)
CPT/HCPCS: 36415; 80053; 80061

== ENCOUNTER → 2021-01-14 | Outpatient (CLI) | payer MEDICARE, BC ==
--- NOTE | 2021-01-15 11:05 | MM ---
Reason for exam: screening (asymptomatic). Last mammogram was performed 2 years and 1 month ago. History: Patient is postmenopausal. Family history of breast cancer in maternal cousin at age 50. Benign excisional biopsy of the right breast, 1977. Took hormonal contraceptives for 7 years. Took estrogen for 5 years. Taking other hormone for 3 years. Physical Findings: A clinical breast exam by your physician is recommended on an annual basis and results should be correlated with mammographic findings. MG 3D Screening Mammo W/Cad Bilateral CC and MLO view(s) were taken. Prior study comparison: December 10, 2018, left breast MG 3d diag mammo w/cad LT. April 02, 2018, left breast MG 3d work up w/cad LT. There are scattered fibroglandular densities. There is no discrete abnormality. No significant changes when compared with prior studies. ASSESSMENT: Negative, BI-RAD 1 RECOMMENDATION: Routine screening mammogram of both breasts in 1 year.
== END | disposition home or self-care (01) ==
LOC: RADMAMWWP 15:18
PROVIDERS: ATTEND Family Medicine
DX: Z12.31 Encounter for screening mammogram for malignant neoplasm of breast (principal); Z78.0 Asymptomatic menopausal state; Z80.3 Family history of malignant neoplasm of breast
CPT/HCPCS: 77063; 77067

== ENCOUNTER → 2021-01-23 | Outpatient (CLI) | payer MEDICARE, BC ==
[2021-01-23 18:49] LABS: African American GFR (CKD) 55.3 (60.0-200.0); Albumin 4.2 g/dL (3.80-4.90); Calcium 8.9 mg/dL (8.7-10.3); Chol/HDL Ratio 3.46; Globulin 2.1 g/dL (1.6-3.3); LDL Cholesterol,Calculated 53.2 mg/dL (0.0-131.0); Non-African American GFR(CKD) 47.7 (60.0-200.0); Potassium 4.9 mmol/L (3.5-5.5); Total Bilirubin 0.4 mg/dL (0.3-1.2); Total Protein 6.3 g/dL (6.2-8.2); VLDL Calculation 32.8 mg/dL (5.00-40.00)
== END | disposition home or self-care (01) ==
LOC: LABWHC1 09:31
PROVIDERS: ATTEND Internal Medicine Interventional Cardiology
DX: E78.2 Mixed hyperlipidemia (principal)
CPT/HCPCS: 36415; 80053; 80061

== ENCOUNTER → 2022-01-11 | Outpatient (CLI) | payer MEDICARE, BC ==
[2022-01-11 11:56] LABS: ALT 50 U/L (8-44); AST 35 U/L (13-35); African American GFR (CKD) 61.6 (60.0-200.0); Albumin/Globulin Ratio 1.48 (1.60-3.17); Alkaline Phosphatase 91 U/L (41-126); Blood Urea Nitrogen 18.6 mg/dL (9.0-27.0); Calcium 9.2 mg/dL (8.7-10.3); Carbon Dioxide 23.9 mmol/L (20.0-27.5); Chloride 109 mmol/L (96-109); Chol/HDL Ratio 3.32 Ratio; Globulin 2.7 g/dL (1.6-3.3); Glucose 111 mg/dL (70-110); LDL Cholesterol,Calculated 65.7 mg/dL (0.0-131.0); Non-African American GFR(CKD) 53.2 (60.0-200.0); Sodium 142 mmol/L (135-145); Total Protein 6.7 g/dL (6.2-8.2)
== END | disposition home or self-care (01) ==
LOC: LABWHC1 09:00
PROVIDERS: ATTEND Internal Medicine Interventional Cardiology
DX: E78.2 Mixed hyperlipidemia (principal)
CPT/HCPCS: 36415; 80053; 80061

== ENCOUNTER → 2022-05-02 | Outpatient (CLI) | payer MEDICARE, BC ==
--- NOTE | 2022-05-05 09:10 | MM ---
Reason for Exam: Screening (asymptomatic). Last mammogram was performed 1 year(s) and 4 month(s) ago. Patient History: Menarche at age 16. First Full-Term at age 21. Right ovary removed at age 36. Hysterectomy at age 36. Postmenopausal. Patient used Estrogen for 5 years. Patient used Hormonal Contraceptives for 7 years. 1978, Benign Excisional Biopsy on the right side. Maternal cousin had breast cancer, age 50. Risk Values: Amy 5 year model risk: 1.3%. NCI Lifetime model risk: 2.0%. Prior Study Comparison: 04/02/2018 Left Diagnostic Mammogram, [facility]. 12/10/2018 Left Diagnostic Mammogram, [facility]. 01/14/2021 Bilateral Screening Mammogram, [facility]. Tissue Density: There are scattered fibroglandular densities. Findings: Analyzed By CAD. There is no suspicious group of microcalcifications or new suspicious mass in either breast. Benign calcifications within both breasts. No significant change from prior exams. Overall Assessment: Benign, BI-RAD 2 Management: Screening Mammogram of both breasts in 1 year. A clinical breast exam by your physician is recommended on an annual basis and results should be correlated with mammographic findings. Electronically signed and approved by: Aguila Bhatti D.O.
== END | disposition home or self-care (01) ==
LOC: RADMAMWWP 10:03
PROVIDERS: ATTEND Family Medicine
DX: Z12.31 Encounter for screening mammogram for malignant neoplasm of breast (principal); Z78.0 Asymptomatic menopausal state; Z80.3 Family history of malignant neoplasm of breast
CPT/HCPCS: 77063; 77067

== ENCOUNTER → 2023-01-26 | Outpatient (CLI) | payer MEDICARE, BC ==
[2023-01-26 16:26] LABS: ALT 51 U/L (8-44); AST 32 U/L (13-35); Alkaline Phosphatase 83 U/L (41-126); Blood Urea Nitrogen 16.8 mg/dL (9.0-27.0); Calcium 9.3 mg/dL (8.7-10.3); Carbon Dioxide 24.8 mmol/L (21.6-31.8); Chloride 109 mmol/L (96-109); Chol/HDL Ratio 2.85 Ratio; Glucose 104 mg/dL (70-110); LDL Cholesterol,Calculated 41.7 mg/dL (0.0-131.0); Potassium 5.1 mmol/L (3.5-5.5); Sodium 143 mmol/L (135-145); Total Bilirubin <0.2 mg/dL (0.3-1.2)
== END | disposition home or self-care (01) ==
LOC: LABWHC1 08:35
PROVIDERS: ATTEND Nurse Practitioner Adult Health
DX: I10 Essential (primary) hypertension (principal); E78.2 Mixed hyperlipidemia
CPT/HCPCS: 36415; 80053; 80061

== ENCOUNTER → 2023-04-14 | Day surgery (SDC) | payer MEDICARE, BC ==
[2023-04-09 16:02] VITALS: BMI 26.2
[~2023-04-14] MED LIST: LACTATED RINGERS 1,000 ML IV SCH; LIDOCAINE 2% INJ 20 MG/ML (2 ML VIAL) ONE; PROPOFOL 10 MG/ML 20 ML VIAL IV ONE
[2023-04-14 07:45] VITALS: TEMP 96.9
--- NOTE | 2023-04-14 08:25 | P.GSHP ---
History of Present Illness H&P Date: 04/14/23 Chief Complaint: Anemia, screening 83-year-old female here for upper and lower endoscopy. Patient with chronic anemia which is iron deficient. Complains of weakness. No rectal bleeding or melena. No recent upper or lower endoscopy for many years. Past Medical History Past Medical History: Hyperlipidemia, Thyroid Disorder Additional Past Medical History / Comment(s): CAD, anemia History of Any Multi-Drug Resistant Organisms: None Reported Past Surgical History: Section, Cholecystectomy, Hernia Repair, Hysterectomy Additional Past Surgical History / Comment(s): thyroid removal, hernia repair colonoscopy egd cataracts removved both eyes with implants Past Anesthesia/Blood Transfusion Reactions: No Reported Reaction Past Psychological History: No Psychological Hx Reported, Anxiety Smoking Status: Former smoker Past Alcohol Use History: None Reported Additional Past Alcohol Use History / Comment(s): quit 2009 Past Drug Use History: None Reported - Past Family History Father Family Medical History: Cancer Additional Family Medical History / Comment(s): lung Medications and Allergies Home Medications Medication Instructions Recorded Confirmed Type Pravastatin Sodium 20 mg PO HS 03/28/14 04/14/23 History Cholecalciferol [Vitamin D3] 1,000 unit PO DAILY 01/27/17 04/14/23 History Fish Oil/Dha/Epa [Fish Oil 1,200 1 cap PO DAILY 01/27/17 04/14/23 History mg Fish Oil] Glucosamine/Chondr Fernandez A Sod [Osteo 1 tab PO DAILY 01/27/17 04/14/23 History Bi-Flex Caplet] Cyanocobalamin [Vitamin B-12] 500 mcg PO DAILY 08/18/18 04/14/23 History Levothyroxine Sodium [Synthroid] 150 mcg PO DAILY 08/18/18 04/14/23 History Vit C/E/Zn/Coppr/Lutein/Zeaxan 1 tab PO BID 04/09/23 04/14/23 History [Preservision Areds 2 Chew Tab] Allergies Allergy/AdvReac Type Severity Reaction Status Date / Time gluten Allergy Unknown Verified 04/14/23 07:40 hydrocodone bitartrate AdvReac Rash/Hives Verified 04/14/23 07:40 [From Vicodin] Penicillins AdvReac Rash/Hives Verified 04/14/23 07:40 Surgical - Exam Vital Signs Temp Pulse Resp BP Pulse Ox 96.9 F L 76 18 130/60 100 04/14/23 07:39 04/14/23 07:39 04/14/23 07:39 04/14/23 07:39 04/14/23 07:39 Physical exam: General: Well-developed, well-nourished HEENT: Normocephalic, sclerae nonicteric Abdomen: Nontender, nondistended Extremities: No edema Neuro: Alert and oriented Assessment and Plan (1) Anemia Narrative/Plan: Will proceed with upper and lower endoscopy. Current Visit: Yes Status: Acute Code(s): D64.9 - ANEMIA, UNSPECIFIED SNOMED Code(s): 836167389
--- NOTE | 2023-04-14 08:44 | P.PCN ---
Date of Procedure: 04/14/23 Procedure(s) Performed: PREOPERATIVE DIAGNOSIS: Anemia, screening POSTOPERATIVE DIAGNOSIS: Erosive gastritis, small hiatal hernia, diverticulosis PROCEDURE: 1. EGD with biopsy 2. Colonoscopy ANESTHESIA: MAC SURGEON: Anthony Oakes M.D. SPECIMENS: Antrum, body of stomach ENDOSCOPIC PROCEDURE: The patient was on the endoscopy table in the left decubitus position. The Olympus gastroscope was inserted into the oropharynx and passed under direct visualization to the region of the third portion of the duodenum. From that point the scope was slowly withdrawn inspecting all surfaces carefully. There were no neoplastic inflammatory or polypoid lesions throughout the duodenum. The pylorus was widely patent. The stomach was carefully inspected. There was erosive gastritis present biopsies of the antrum and body of stomach took place. A small hiatal hernia was seen. The esophagus appear normal. The patient was kept on the endoscopy table in the left decubitus position. The Olympus colonoscope was inserted into the anus and passed under direct visualization to the base of the cecum. The appendiceal orifice was visualized. From that point the scope was slowly withdrawn inspecting all surfaces carefully. There were no neoplastic inflammatory or polypoid lesions throughout the cecum, ascending, transverse, descending, sigmoid and rectum. There was left-sided diverticulosis noted. Digital rectal examination was normal. The patient was taken to the recovery room in stable condition per anesthesia guidelines. RECOMMENDATIONS: Resume diet. Begin antiacids.
[2023-04-14 08:59] VITALS: RESP 16
[2023-04-14 09:36] VITALS: BP 144/71; PULSE 66
== END ==
LOC: ORWHC2ENDO 07:18
PROVIDERS: ATTEND Surgery
DX: K29.50 Unspecified chronic gastritis without bleeding (principal); K44.9 Diaphragmatic hernia without obstruction or gangrene; D50.9 Iron deficiency anemia, unspecified; E78.5 Hyperlipidemia, unspecified; E07.9 Disorder of thyroid, unspecified; K57.30 Diverticulosis of large intestine without perforation or abscess without bleeding; Z87.891 Personal history of nicotine dependence; Z79.890 Hormone replacement therapy; Z79.899 Other long term (current) drug therapy; Z88.5 Allergy status to narcotic agent; Z88.0 Allergy status to penicillin; Z91.018 Allergy to other foods; Z90.49 Acquired absence of other specified parts of digestive tract
CPT/HCPCS: 88305; 45378; 43239; J2704; J2001

== ENCOUNTER 2024-01-31 16:46 | Emergency (ER) | payer MEDICARE, BC ==
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
[2024-01-31] MEDS: ACETAMINOPHEN TAB 500 MG TAB PO STA (18:44)
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
[2024-01-31] MEDS: LIDOCAINE 1% INJ 10MG/ML (20 ML MDV) SQ ONE (19:57)
[2024-01-31] MEDS: DIPH,PERTUS(ACELL)TETVAC-LF 0.5 ML VIAL IM ONE (20:24)
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
[2024-01-31 21:22] VITALS: BP 135/71; PULSE 72; RESP 17; TEMP 97.1
== END 2024-01-31 21:19 | disposition home or self-care (01) ==
LOC: EC 16:46
DX: S62.521A Displaced fracture of distal phalanx of right thumb, initial encounter for closed fracture (principal); S01.81XA Laceration without foreign body of other part of head, initial encounter; S50.811A Abrasion of right forearm, initial encounter; S50.812A Abrasion of left forearm, initial encounter; S80.212A Abrasion, left knee, initial encounter; Z88.0 Allergy status to penicillin; Z88.5 Allergy status to narcotic agent; Z87.891 Personal history of nicotine dependence; Z91.018 Allergy to other foods; Z23 Encounter for immunization; V28.49XA Other motorcycle driver injured in noncollision transport accident in traffic accident, initial encounter; Y92.410 Unspecified street and highway as the place of occurrence of the external cause; Y93.55 Activity, bike riding
CPT/HCPCS: 73130; 72170; 73060; 73090; 73562; 72125; 70450; 90715; 12013; 99284; 90471; J2001

== ENCOUNTER → 2024-05-11 | Outpatient (CLI) | payer MEDICARE, BC ==
--- NOTE | 2024-05-11 10:00 | MM ---
Reason for Exam: Screening (asymptomatic). Last screening mammogram was performed 12 month(s) ago. Patient History: Menarche at age 16. First Full-Term at age 21. Right ovary removed at age 36. Hysterectomy at age 36. Postmenopausal. Patient used Estrogen for 5 years. Patient used Hormonal Contraceptives for 7 years. 1978, Benign Excisional Biopsy on the right side. Maternal cousin had breast cancer, age 50. Risk Values: Amy 5 year model risk: 1.2%. NCI Lifetime model risk: 1.6%. Prior Study Comparison: 01/14/2021 Bilateral Screening Mammogram, [facility]. 05/02/2022 Bilateral MG 3D screening mammo w/cad, [facility]. 05/07/2023 Bilateral MG 3D screening mammo w/cad, [facility]. Tissue Density: The breasts are almost entirely fatty. Findings: Analyzed By CAD. Right breast: There is no suspicious group of microcalcifications or new suspicious mass. Benign-appearing calcifications right breast. Left breast: There is no suspicious group of microcalcifications or new suspicious mass. Benign-appearing calcifications left breast. Overall Assessment: Benign, BI-RAD 2 Management: Screening Mammogram of both breasts in [address] [facility] will attempt to contact patient to return for supplemental views and ultrasound if indicated. Patient should continue monthly self-breast exams. A clinical breast exam by your physician is recommended on an annual basis. This exam should not preclude additional follow-up of suspicious palpable abnormalities. Note on Amy scores and lifetime risk: 1. A Amy score greater than 3% is considered moderate risk. If this is the case, consider specialist referral to assess eligibility for a risk reducing agent. 2. If overall lifetime risk for the development of breast cancer is 20% or higher, the patient may qualify for future screening with alternating mammogram and breast MRI. [facility], , 05/11/2024 9:53 AM. Electronically signed and approved by: Abdoul Zhu DO
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
== END ==
LOC: NEUROMAIN 07:40
PROVIDERS: ATTEND Family Medicine
DX: Z12.31 Encounter for screening mammogram for malignant neoplasm of breast (principal); R92.8 Other abnormal and inconclusive findings on diagnostic imaging of breast; R92.1 Mammographic calcification found on diagnostic imaging of breast; F07.81 Postconcussional syndrome; H81.11 Benign paroxysmal vertigo, right ear; F31.9 Bipolar disorder, unspecified; R40.0 Somnolence; Z88.5 Allergy status to narcotic agent; Z88.0 Allergy status to penicillin; Z91.018 Allergy to other foods; Z87.891 Personal history of nicotine dependence; Z80.3 Family history of malignant neoplasm of breast
CPT/HCPCS: 77063; 77067; 95812